=== PATIENT | female | born 1980 | race Caucasian/White ===

== ENCOUNTER 2016-11-05 23:42 | Outpatient (CLI) | payer MEDICAID ==
[~2016-11-05] VITALS: Ht 156.2 cm; Wt 60.4 kg
[~2016-11-05 23:42] MED LIST: FERR27TA PO; PREN1TAB49 PO
[2016-11-06 00:06] VITALS: BP 119/65; PULSE 83; RESP 18
[2016-11-06] MEDS ORDERED: CALC667C PO (00:10)
[2016-11-06] MEDS ORDERED: ONDANSETRON 4 MG INJ IV STA (00:24)
[2016-11-06] MEDS ORDERED: LACTATED RINGER'S 1,000 ML IV ONE (00:30)
[2016-11-06] MEDS ORDERED: CITRIC ACID/SODIUM CITRATE 15 ML CUP PO ONE (00:30)
[2016-11-06 01:17] LABS: ADD SCAN DIFF NO
[2016-11-06 01:19] LABS: BASOPHILS % 0.3 % (0.0-2.0); EOSINOPHILS # 0.1 10^3/ul (0.0-0.5); EOSINOPHILS % 0.8 % (0.0-7.0); HEMATOCRIT 32.7 % (37.0-47.0); HEMOGLOBIN 11.2 g/dl (12.0-16.0); LYMPHOCYTES # 1.4 10^3/ul (0.8-2.9); LYMPHOCYTES % 11.3 % (15.0-51.0); MEAN CORPUSCULAR HEMOGLOBIN 29.5 pg (29.0-33.0); MEAN CORPUSCULAR HGB CONC 34.3 g/dl (32.0-37.0); MEAN CORPUSCULAR VOLUME 86.1 fl (82.0-101.0); MEAN PLATELET VOLUME 9.9 fl (7.4-10.4); MONOCYTE # 0.7 10^3/ul (0.3-0.9); MONOCYTES % 5.5 % (0.0-11.0); NEUTROPHIL # 9.8 10^3/ul (1.6-7.5); NEUTROPHILS % 81.5 % (39.0-77.0); PLATELET COUNT 250 10^3/UL (140-415); RED CELL DISTRIBUTION WIDTH 13.9 % (11.5-14.5)
[2016-11-06 01:19] LABS: ADD UMIC YES; URINE BILIRUBIN (Dip) NEGATIVE (NEGATIVE); URINE BLOOD (Dip) NEGATIVE (NEGATIVE); URINE COLOR LT. YELLOW (YELLOW); URINE GLUCOSE (Dip) NEGATIVE (NEGATIVE); URINE KETONES (Dip) NEGATIVE (NEGATIVE); URINE LEUKOCYTE ESTERASE (Dip) NEGATIVE (NEGATIVE); URINE NITRITE (Dip) NEGATIVE (NEGATIVE); URINE TOTAL PROTEIN (Dip) 2+ (NEGATIVE); URINE UROBILINOGEN (Dip) 0.2 E.U./dL (0.1-1.0)
[2016-11-06 01:29] LABS: SQUAMOUS EPITHELIAL CELL,UR MANY; URINE RBCS 0-2 /HPF (0)
[2016-11-06 01:30] LABS: BACTERIA,URINE OCCASIONAL
[2016-11-06] MEDS ORDERED: LACTATED RINGER'S 1,000 ML IV SCH (01:30)
--- NOTE | 2016-11-06 01:30 | RADRPT ---
PROCEDURE: Right upper quadrant ultrasound. CLINICAL INDICATION: , epigastric pain. TECHNIQUE: Multiple real-time longitudinal and transverse images of the right upper quadrant of th e abdomen were acquired utilizing a curved array transducer. Images were reviewed on a high-resoluti on PACS workstation. COMPARISON: None. FINDINGS: The pancreas head is unremarkable. The pancreas body and tail are obscured. The liver is normal in echogenicity. The liver measures 14.4 cm in length. No hepatic lesion or in trahepatic biliary ductal dilatation is seen. The portal vein is patent with hepatopetal flow. Multiple mobile stones are seen within the gallbladder lumen. The gallbladder wall is not thickened . There is no pericholecystic fluid. The sonographic Santiago's sign is negative. The common bile lupis t measures 3 mm in diameter, not dilated. The right kidney measures 10.8 cm in length. Renal echogenicity is normal. There is no hydronephro sis, urinary calculus, or renal mass. The visualized portions of the aorta and IVC are unremarkable. IMPRESSION: 1. Cholelithiasis without evidence of cholecystitis. 2. No biliary dilatation. RPTAT: HTAR .Rashad Morton MD, Date Time Electronically viewed and signed by .Rashad Morton MD, on 11/06/2016 01:29 .R/
[2016-11-06 01:40] LABS: ALBUMIN 3.6 g/dl (3.3-4.9); ALBUMIN/GLOBULIN RATIO 0.97; BILIRUBIN,INDIRECT 0.1 mg/dl (0-1.1); BILIRUBIN,TOTAL 0.1 mg/dl (0.2-1.3); CALCIUM 9.5 mg/dl (8.4-10.2); CREATININE 0.4 mg/dl (0.44-1.00); POTASSIUM 3.8 mmol/L (3.5-5.1); TOTAL PROTEIN 7.3 g/dl (6.1-8.1)
--- NOTE | 2016-11-06 03:15 | TRIAGE ---
OB Triage Datetime Report Generated by CPN: 11/06/2016 03:15 Datetime: 11/06/2016 03:10 Stage of : OB Triage Datetime: 11/06/2016 02:12 Heart Rate FHR Baseline Rate: 145 Monitor Mode: External US FHR Baseline Changes: No Baseline Change Variability: Moderate 6-25 bpm Pain Assessment Pain Scale: 0 Pain Presence: None/Denies Pain Type: N/A Datetime: 11/06/2016 01:36 Stage of : OB Triage Monitor Mode: External Pattern: Normal: <= 5 Contractions in 10 Minutes Resting Tone [place]: Relaxed Heart Rate FHR Baseline Rate: 135 Monitor Mode: External US FHR Baseline Changes: No Baseline Change Variability: Moderate 6-25 bpm Category: Category I Pain Assessment Pain Scale: 0 Pain Presence: None/Denies Pain Type: N/A Datetime: 11/06/2016 00:25 Stage of : OB Triage Labor Evaluation Frequency: 0 Monitor Mode: External Quality: Mild Pattern: Normal: <= 5 Contractions in 10 Minutes Resting Tone [place]: Relaxed Heart Rate FHR Baseline Rate: 140 Monitor Mode: External US FHR Baseline Changes: No Baseline Change Variability: Moderate 6-25 bpm Accelerations: 15X15 Decelerations: None Category: Category I Datetime: 11/06/2016 00:01 Time of Arrival: 11/05/2016 23:34 EGA: 24.2 Arrived By: Wheelchair Arrived From: Home Chief Complaint: to OB triage w/ c/o epigastric pain and nausea beg 2300 and emesis x1. Denie s medical problems or hx problems this Movement: Present Contractions: Denies/Absent Rupture of Membranes: Denies Vaginal Bleeding: None Vaginal Discharge: Denies Recent Sexual Intercouse: Denies Abdominal Trauma: Not Applicable Patient Complaints: Nausea; Vomiting; Epigastric Pain Time Provider Notified: 10/30/2016 00:25 Provider Notified: Dr Enrique Initial Plan: EFM, IV hydration, RUQ u/s, labs Datetime: 11/05/2016 23:52 Stage of : OB Triage Maternal Assessment Level of Consciousness: Fully Conscious Headache: Denies Blurred Vision: No Respiratory Effort: Unlabored Nausea/Vomiting: Present RUQ Epigastric Pain: Present Facial Edema: None Labor Evaluation Frequency: placed Monitor Mode: External Monitor Mode: External US Comments: FHT 140 Pain Assessment Pain Scale: 8 Pain Presence: Constant Pain Type: Sharp Pain Location: Abdomen
--- NOTE | 2016-11-06 03:33 | QN ---
Documentation Comment Laborist Dr Mckeon's pt 36 y.o. with an IUP at 24w 2d with c/o epigastric pain and vomiting. Denies contractions, bleeding, or leaking. No loose stools. Denies a h/o heartburn or gallstones. PMHx: none. PSHx: none. POBHx: x 1. NKDA. T=98.4 BP 118/65 NST:baseline 130 bpm with accels to 170 bpm. No decels. No UC's. RUQ US: multiple gallstones. CBD not dilated. Right kidney, liver and pancreas are normal. ALT/AST 38/86. WBC 12.0 U/A negative except for 2+ protein. Pt was given IV hydration, Bicitra p.o., Zofran. She felt much better with the pain and nausea completely resolved. A: IUP at 24w 2d. Cholelithiasis. P: D/C IV and D/C home. Reviewed the findings and the need to consume a low-fat diet. REYNALDO CHUNG MD November 06, 2016 03:32
== END 2016-11-06 03:21 | disposition home or self-care (01) ==
LOC: OBT 23:42 → L-D 23:43 → OBT 11-06 03:21
PROVIDERS: ATTEND Obstetrics & Gynecology
DX: O26.892 Other specified pregnancy related conditions, second trimester (principal); O21.8 Other vomiting complicating pregnancy; O09.522 Supervision of elderly multigravida, second trimester; Z3A.24 24 weeks gestation of pregnancy; R10.13 Epigastric pain
CPT/HCPCS: 36415; 76705; 80053; 81001; 82150; 83690; 85025; 96360; 96361; 96374; J2405; J7120; Z7500; G0463

== ENCOUNTER 2017-02-19 08:41 | Inpatient (IN) | payer MEDICAID ==
[~2017-02-19] VITALS: Ht 157.5 cm; Wt 62.8 kg
[~2017-02-19 08:41] MED LIST changes: +CALC667C PO
[2017-02-19 09:00] VITALS: BP 102/78; PULSE 139; RESP 18
[2017-02-19] MEDS ORDERED: morphine 10 MG INJ IM PRN ×2 (13:00→13:30)
[2017-02-19] MEDS: LACTATED RINGER'S 1,000 ML IV SCH ×2 (13:03→19:45)
[2017-02-19] MEDS ORDERED: MISOPROSTOL 200 MCG TAB PR PRN (18:00)
[2017-02-19] MEDS ORDERED: LIDOCAINE 1% (MPF) 30 ML INJ INJ PRN (18:00)
[2017-02-19] MEDS ORDERED: METHYLERGONOVINE 0.2 MG INJ IM PRN (18:00)
[2017-02-19] MEDS ORDERED: IBUPROFEN 600 MG TAB PO PRN ×2 (18:00→19:30)
[2017-02-19] MEDS ORDERED: BUTORPHANOL 2 MG INJ IV PRN (18:00)
[2017-02-19] MEDS ORDERED: OXYTOCIN 30 UNITS/LR 500 ML IV PRN (18:00)
[2017-02-19] MEDS ORDERED: HYDROCODONE/APAP (5/325) TAB PO PRN (18:00)
[2017-02-19] MEDS ORDERED: CARBOPROST 250 MCG INJ IM PRN (18:00)
--- NOTE | 2017-02-19 18:08 | TRIAGE ---
OB Triage Datetime Report Generated by CPN: 02/19/2017 18:08 Datetime: 02/19/2017 17:58 Labor Evaluation Frequency: 3-6 Monitor Mode: External Duration (sec)2399: 50-70 Quality: Mild Pattern: Normal: <= 5 Contractions in 10 Minutes Resting Tone [place]: Relaxed Heart Rate FHR Baseline Rate: 125 Monitor Mode: External US Variability: Moderate 6-25 bpm Accelerations: 15X15 Decelerations: None Category: Category I Pain Assessment Pain Scale: 4 Pain Presence: Intermittent Pain Type: Contraction Pain Location: Abdomen Pain Goal: 3 Datetime: 02/19/2017 17:25 Vaginal Exam Dilatation (cms): 2.0 Effacement (%): 75 Station: -3 Exam By: WLIU Datetime: 02/19/2017 17:00 Labor Evaluation Frequency: 4-6 Monitor Mode: External Duration (sec)2399: 50-80 Quality: Mild Pattern: Normal: <= 5 Contractions in 10 Minutes Resting Tone [place]: Relaxed Heart Rate FHR Baseline Rate: 125 Monitor Mode: External US Variability: Moderate 6-25 bpm Accelerations: 15X15 Decelerations: None Category: Category I Pain Assessment Pain Scale: 3 Pain Presence: Intermittent Pain Type: Contraction Pain Location: Abdomen Pain Goal: 3 Datetime: 02/19/2017 15:57 Labor Evaluation Frequency: 4-7 Monitor Mode: External Duration (sec)2399: 50-70 Quality: Mild Pattern: Normal: <= 5 Contractions in 10 Minutes Resting Tone [place]: Relaxed Heart Rate FHR Baseline Rate: 115 Monitor Mode: External US Variability: Moderate 6-25 bpm Accelerations: 15X15 Decelerations: None Category: Category I Pain Assessment Pain Scale: 1 Pain Presence: Intermittent Pain Type: Contraction Pain Location: Abdomen Pain Goal: 3 Datetime: 02/19/2017 15:00 Labor Evaluation Frequency: 4-7 Monitor Mode: External Duration (sec)2399: 50-80 Quality: Mild Pattern: Normal: <= 5 Contractions in 10 Minutes Resting Tone [place]: Relaxed Heart Rate FHR Baseline Rate: 115 Monitor Mode: External US Variability: Moderate 6-25 bpm Accelerations: 15X15 Decelerations: None Category: Category I Pain Assessment Pain Scale: 1 Pain Presence: Intermittent Pain Type: Contraction Pain Location: Abdomen Pain Goal: 3 Datetime: 02/19/2017 14:40 Vaginal Exam Dilatation (cms): 2.0 Effacement (%): 70 Station: -3 Exam By: WLIU Datetime: 02/19/2017 14:00 Labor Evaluation Frequency: 5-6 Monitor Mode: External Duration (sec)2399: 50-80 Quality: Mild Pattern: Normal: <= 5 Contractions in 10 Minutes Resting Tone [place]: Relaxed Heart Rate FHR Baseline Rate: 125 Monitor Mode: External US Variability: Moderate 6-25 bpm Accelerations: 15X15 Decelerations: None Category: Category I Pain Assessment Pain Scale: 1 Pain Presence: Intermittent Pain Type: Contraction Pain Location: Abdomen Pain Goal: 3 Datetime: 02/19/2017 12:27 Vaginal Exam Dilatation (cms): 2.0 Effacement (%): 70 Station: -3 Exam By: wliu Datetime: 02/19/2017 10:38 Labor Evaluation Frequency: 5 Monitor Mode: External Duration (sec)2399: 60 Quality: Moderate Pattern: Normal: <= 5 Contractions in 10 Minutes Resting Tone [place]: Relaxed Heart Rate FHR Baseline Rate: 135 Monitor Mode: External US Variability: Moderate 6-25 bpm Accelerations: 15X15 Decelerations: None Category: Category I Pain Assessment Pain Scale: 10 Pain Presence: Intermittent Pain Type: Contraction Pain Location: Abdomen Pain Goal: 3 Datetime: 02/19/2017 09:51 Labor Evaluation Frequency: 1-12 Monitor Mode: External Duration (sec)2399: 50-70 Quality: Mild Pattern: Normal: <= 5 Contractions in 10 Minutes Resting Tone [place]: Relaxed Heart Rate FHR Baseline Rate: 135 Monitor Mode: External US FHR Baseline Changes: No Baseline Change Variability: Moderate 6-25 bpm Accelerations: 15X15 Decelerations: None Datetime: 02/19/2017 09:03 Vaginal Exam Dilatation (cms): 1.5 Effacement (%): 70 Station: -2 Exam By: CK Vaginal Bleeding: Normal Show Cervix, Consistency: Soft Cervix, Position: Posterior Presentation 'A': Cephalic Datetime: 02/19/2017 08:56 Time of Arrival: 02/19/2017 08:34 EGA: 39.4 Arrived By: Ambulatory Arrived From: Home Chief Complaint: CONTRACTIONS FROM 0200, BLEEDING Movement: Present Contractions: Regular Time Contractions Began: 02/19/2017 08:00 Contractions: Q5-10MIN Rupture of Membranes: Denies Vaginal Bleeding: Scant Vaginal Discharge: Present Patient Complaints: Contractions; Other Time Provider Notified: 02/19/2017 10:33 Provider Notified: Initial Plan: r/o labor Datetime: 02/19/2017 08:53 Stage of : OB Triage Assessment Type: Triage Maternal Assessment Level of Consciousness: Fully Conscious Headache: Denies Blurred Vision: No Respiratory Effort: Unlabored; Regular Rhythm; Equal Expansion Breath Sounds, Left: Clear and Equal Breath Sounds, Right: Clear and Equal Nausea/Vomiting: Denies RUQ Epigastric Pain: Denies Lower Extremities Edema: None Degree: None Upper Extremities Edema: None Degree: None Facial Edema: None Temperature Route: Oral Fall Risk Assessment History of Falling: (0) No Secondary Diagnosis: (0) No Ambulatory Aid: (0) Bedrest/Nurse Assist IV Therapy: (0) No Gait: (0) Normal/Bedrest/Immobile Mental Status: (0) Oriented to Own Ability Fall Score: 0 Fall Risk Score Definition: No Risk: No action required Datetime: 11/06/2016 02:30 Labor Evaluation Frequency: NONE Duration (sec)2399: NONE Pattern: Normal: <= 5 Contractions in 10 Minutes Heart Rate FHR Baseline Rate: 130 Monitor Mode: External US FHR Baseline Changes: No Baseline Change Variability: Moderate 6-25 bpm Comments: CONTINUOUS MONITORING WITH LOSS OF CONTACT D/T GESTATIONAL AGE Datetime: 11/06/2016 00:01 EGA: 24.3
--- NOTE | 2017-02-19 18:49 | HP ---
Date/Time of Note Date/Time of Note DATE: 02/19/17 TIME: 18:49 OB - History Hx of Present Free Text/Dictation 39+ : 2 Para: 1 Care: Good Care Ultrasounds: Normal mid trimester US Obstetrical Complications: None Medical Complications: None Past Family/Social History * Past Medical, Surgical, Family and Obstetric Histories reviewed from chart. OB Admission Exam Vital Signs Vital Signs Vital Signs Date Time Temp Pulse Resp B/P Pulse Ox O2 Delivery O2 Flow Rate FiO2 02/19/17 09:00 98.2 139 18 102/78 97 Room Air Physical Exam Cervical Dilatation: 2cm Effacement: 75% Station: -1 Membranes: Intact Heart Rate: 140's Accelerations: Accelerations Present Decelerations: No Decelerations Varibility: Moderate Contractions on Admission: < 5 Minutes Apart OB Assessment/Plan Reason for admission: observation Plan: Expectant Management TRUE AGUILAR M.D. Feb 19, 2017 18:49
[2017-02-19] MEDS ORDERED: LACTATED RINGER'S 1,000 ML IV PRN (19:00)
[2017-02-19] MEDS ORDERED: OXYTOCIN 30 UNITS/LR 500 ML IV SCH ×2 (19:30)
[2017-02-19 20:58] LABS: BASOPHILS % 0.4 % (0.0-2.0); EOSINOPHILS # 0.1 10^3/ul (0.0-0.5); EOSINOPHILS % 0.9 % (0.0-7.0); HEMATOCRIT 40.1 % (37.0-47.0); HEMOGLOBIN 13.1 g/dl (12.0-16.0); LYMPHOCYTES # 1.4 10^3/ul (0.8-2.9); LYMPHOCYTES % 17.5 % (15.0-51.0); MEAN CORPUSCULAR HEMOGLOBIN 29.6 pg (29.0-33.0); MEAN CORPUSCULAR HGB CONC 32.7 g/dl (32.0-37.0); MEAN CORPUSCULAR VOLUME 90.7 fl (82.0-101.0); MEAN PLATELET VOLUME 11.1 fl (7.4-10.4); MONOCYTE # 0.5 10^3/ul (0.3-0.9); MONOCYTES % 6.6 % (0.0-11.0); NEUTROPHILS % 74.1 % (39.0-77.0); PLATELET COUNT 232 10^3/UL (140-415); RED BLOOD COUNT 4.42 10^6/ul (4.20-5.40); RED CELL DISTRIBUTION WIDTH 14.2 % (11.5-14.5); WHITE BLOOD COUNT 8.1 10^3/ul (4.8-10.8)
[2017-02-19 21:21] LABS: INR 0.9; PROTIME 12.1 Sec (12.2-14.2); PT RATIO 0.9
[2017-02-19 21:23] LABS: PARTIAL THROMBOPLASTIN TIME 30.6 Sec (25.0-35.0)
[2017-02-19] MEDS ORDERED: MINERAL OIL LIGHT 10 ML VIAL TOP ONE (22:00)
[2017-02-19] MEDS ORDERED: DIPHENHYDRAMINE 50 MG INJ IV ONE (23:30)
[2017-02-20] MEDS: LACTATED RINGER'S 1,000 ML IV SCH ×3 (03:43→14:57)
[2017-02-20] MEDS ORDERED: FENTAnyl 2MCG/ML-ROPIV 0.2% 100 ML ONE (05:41)
[2017-02-20] MEDS ORDERED: NALOXONE (0.4 MG/ML) INJ IV PRN (06:00)
[2017-02-20] MEDS ORDERED: FENTAnyl 2MCG/ML-ROPIV 0.2% 100 ML BAG EPI SCH (06:00)
[2017-02-20] MEDS ORDERED: ONDANSETRON 4 MG INJ IV STA (10:58)
[2017-02-20] MEDS ORDERED: MINERAL OIL LIGHT 10 ML VIAL TOP ONE (14:30)
[2017-02-20] MEDS ORDERED: OXYTOCIN 30 UNITS/LR 500 ML IV SCH (16:30)
--- NOTE | 2017-02-20 19:36 | LDN ---
Date/Time of Note Date/Time of Note DATE: 02/20/17 TIME: 19:34 Delivery Summary Normal spontaneous vaginal delivery of a viable over intact perineum Weeks of Gestation 39+ Placenta Delivered: Spontaneously, Intact & Complete Meconium: none Episiotomy: No Perineal laceration: 1 Laceration repair: First-degree perineal laceration was repaired in layers in normal fashion using 2-0 Vicryl and 2-0 chromic Anesthesia type: Epidural Estimated blood loss: 300 Sponge & Needle done & correct: Yes All needle counts correct: Yes Any foreign bodies felt in the: No Problems: Infant Delivery Information Sex Sex: female Apgars 1 Minute: 8 5 Minute: 9 Suctioning Nose & mouth suctioned at keysha: Yes Delee suction performed: No Umbilical Cord Umbilical cord with: 3 Vessels Cord presentations: nuchal cord Nuchal cord present X: 1 Cord Blood was obtained: Yes Mother & Baby Disposition Disposition Mom & Baby to Maternity; Good: Yes (Mother and baby were recovered in good condition) Mom transferred to: Other (70) Baby to NICU: No LIZABETH REYNOSO MD Feb 20, 2017 19:36
[2017-02-20 21:15] VITALS: BP 143/69; PULSE 87; RESP 18
[2017-02-20] MEDS ORDERED: ZOLPIDEM 5 MG TAB PO PRN (22:00)
[2017-02-20] MEDS ORDERED: METHYLERGONOVINE 0.2 MG INJ IM PRN (22:00)
[2017-02-20] MEDS ORDERED: DIBUCAINE 1% 30 GM OINT PR PRN (22:00)
[2017-02-20] MEDS ORDERED: CARBOPROST 250 MCG INJ IM PRN (22:00)
[2017-02-20] MEDS ORDERED: HYDROCODONE/APAP (5/325) TAB PO PRN ×2 (22:00)
[2017-02-20] MEDS ORDERED: MISOPROSTOL 200 MCG TAB PR PRN (22:00)
[2017-02-20] MEDS ORDERED: OXYTOCIN 30 UNITS/LR 500 ML IV PRN (22:00)
[2017-02-20] MEDS: LANOLIN 7 GM TUBE TOP PRN (22:02)
[2017-02-20] MEDS: BENZOCAINE 20% 56 ML SPRAY TOP PRN (22:02)
[2017-02-20] MEDS: WITCH HAZEL/GLYCERIN PAD PR PRN (22:02)
[2017-02-21] VITALS (17 sets, daily range): BP systolic 90–117; BP diastolic 55–73; PULSE 46–82; RESP 10–24
[2017-02-21] MEDS: IBUPROFEN 600 MG TAB PO SCH ×5 (00:08→17:28)
[2017-02-21] MEDS: CEPHALEXIN 500 MG CAP PO SCH ×4 (00:08→17:28)
[2017-02-21] MEDS: LACTATED RINGER'S 1,000 ML IV* SCH ×3 (04:18→14:28)
[2017-02-21] MEDS ORDERED: CEFAZOLIN 1 GM INJ ONE (07:00)
[2017-02-21] MEDS: SENNA/DOCUSATE NA (8.6MG/50MG) TAB PO SCH ×2 (08:26→20:49)
[2017-02-21] MEDS: MAGNESIUM HYDROXIDE 30ML CUP PO SCH ×2 (08:26→20:49)
[2017-02-21 10:09] LABS: BASOPHIL # 0.1 10^3/ul (0.0-0.1); BASOPHILS % 0.5 % (0.0-2.0); EOSINOPHILS # 0.1 10^3/ul (0.0-0.5); EOSINOPHILS % 1.4 % (0.0-7.0); HEMATOCRIT 34.4 % (37.0-47.0); HEMOGLOBIN 11.7 g/dl (12.0-16.0); LYMPHOCYTES # 1.7 10^3/ul (0.8-2.9); LYMPHOCYTES % 16.8 % (15.0-51.0); MEAN CORPUSCULAR HEMOGLOBIN 30.5 pg (29.0-33.0); MEAN CORPUSCULAR VOLUME 89.8 fl (82.0-101.0); MEAN PLATELET VOLUME 10.8 fl (7.4-10.4); MONOCYTE # 0.9 10^3/ul (0.3-0.9); MONOCYTES % 8.5 % (0.0-11.0); NEUTROPHILS % 72.4 % (39.0-77.0); PLATELET COUNT 193 10^3/UL (140-415); RED BLOOD COUNT 3.83 10^6/ul (4.20-5.40); RED CELL DISTRIBUTION WIDTH 14.1 % (11.5-14.5)
--- NOTE | 2017-02-21 15:57 | DS ---
Date/Time of Note Date/Time of Note Home today or next day DATE: 02/21/17 TIME: 15:55 Obstetrical Discharge Record Final Diagnosis Final Diagnosis: Term delivered Other Final Diagnosis Status post vaginal delivery Vaginal Delivery Obstetrical Delivery: Spontaneous, Laceration, Repaired Condition on Discharge Physical Assessment Last Vitals: See nurse's notes Voiding: Yes Bowel Movement: Yes Breast: Soft, non-tender, Filling Fundus: Firm Abdomen and Incision: Soft bowel sounds present Episiotomy: Not applicable Perineum is healing Calf Tenderness: No Patient Condition: Good LIZABETH REYNOSO MD Feb 21, 2017 15:57
--- NOTE | 2017-02-21 16:24 | PN ---
Date/Time of Note Date/Time of Note DATE: 02/21/17 TIME: 16:21 Assessment/Plan VTE Prophylaxis VTE Prophylaxis Intervention: ambulation Lines/Catheters IV Catheter Type (from Nrs): Peripheral IV Assessment/Plan Assessment/Plan Status post vaginal delivery Desires sterilization Proceed with bilateral tubal ligation Subjective 24 Hr Interval Summary Free Text/Dictation No major complaints Desires sterilization Constitutional: improved, no complaints Eyes: no complaints ENT: no complaints Respiratory: no complaints Cardiovascular: no complaints Gastrointestinal: no complaints Genitourinary: no complaints Musculoskeletal: no complaints Skin: no complaints Neurologic: no complaints Endocrine: no complaints Lymphatic: no complaints Psychological: nl mood/affect, no complaints Immunologic: no complaints Exam/Review of Systems Vital Signs Vitals Vital Signs Date Time Temp Pulse Resp B/P Pulse Ox O2 Delivery O2 Flow Rate FiO2 02/21/17 15:27 98.0 59 16 102/73 Room Air 02/19/17 09:00 97 Intake and Output 02/20/17 02/20/17 02/21/17 15:00 23:00 07:00 Intake Total 1000 ml 1125 ml 250 ml Output Total 900 ml 1500 ml 400 ml Balance 100 ml -375 ml -150 ml Exam Abdomen is soft Lochia is moderate Fundus is firm Constitutional: alert, oriented, well developed Psych: nl mood/affect, no complaints Head: atraumatic, normocephalic Eyes: EOMI, PERRL, nl conjunctiva, nl lids, nl sclera ENMT: nl external ears & nose, nl lips & teeth, nl nasal mucosa & septum Neck: non-tender, supple Respiratory: clear to auscultation, normal air movement Cardiovascular: nl pulses, regular rate and rhythm Gastrointestinal: nl liver, spleen, non-tender, soft Genitourinary - Female: other (Lochia is moderate), uterus (Fundus is firm) Musculoskeletal: nl extremities to inspection, nl gait and stance Extremities: normal pulses Neurological: [employer]TERATION [employer]ILOR APPRENTICE II-XII intact, nl mental status, nl speech, nl strength Skin: nl turgor, No rash or lesions Lymph: nl lymph nodes Results Result Diagram: 02/21/17 0946 Results 24 hrs Laboratory Tests Test 02/21/17 09:25 White Blood Count 10.0 # Red Blood Count 3.83 L Hemoglobin 11.7 L Hematocrit 34.4 L Mean Corpuscular Volume 89.8 Mean Corpuscular Hemoglobin 30.5 Mean Corpuscular Hemoglobin Concent 34.0 Red Cell Distribution Width 14.1 Platelet Count 193 Mean Platelet Volume 10.8 H Neutrophils % 72.4 Lymphocytes % 16.8 Monocytes % 8.5 Eosinophils % 1.4 Basophils % 0.5 Nucleated Red Blood Cells % 0.0 Neutrophils # (Manual) 7.2 Lymphocytes # 1.7 Monocytes # 0.9 Eosinophils # 0.1 Basophils # 0.1 Nucleated Red Blood Cells # 0.0 Medications Medications Current Medications Cephalexin 500 mg 500 mg Q6 PO Last administered on 02/21/17 05:58; Admin Dose 500 MG; Start 02/21/17 at 00:00 Lactated Ringer's (Lr) 1,000 ml @ 125 mls/hr Q8H IV* Last administered on 02/21 14:28; Admin Dose 125 MLS/HR; Start 02/20/17 at 21:32 Ibuprofen (Motrin) 600 mg Q6 PO Last administered on 02/21/17 05:58; Admin Dose 600 MG; Start 02/21/17 at 00:00 Acetaminophen/ Hydrocodone Bitart ([place] (5/325)) 1 tab Q4H PRN PO PAIN LEVEL 1 -5 Last administered on 02/21/17 03:37; Admin Dose 1 TAB; Start 02/20/17 at 22: 00 Acetaminophen/ Hydrocodone Bitart ([place] (5/325)) 2 tab Q4H PRN PO PAIN LEVEL 6 -10; Start 02/20/17 at 22:00 Zolpidem Tartrate (Ambien) 5 mg QHS PRN PO INSOMNIA; Start 02/20/17 at 22:00 Senna/Docusate Sodium (Senokot-S) 1 tab BID PO ; Start 02/21/17 at 09:00 Magnesium Hydroxide (Milk Of Mag) 30 ml Q12 PO ; Start 02/21/17 at 09:00 Measles/Mumps/ Rubella Vaccine Live (Mmr Ii Vaccine) 0.5 ml ONCE ONCE SC* ; Start 02/22/17 at 09:00; Stop 02/22/17 at 09:01 Diphtheria/ Tetanus/Acell Pertussis (Adacel) 0.5 ml ONCE ONCE IM* ; Start at 09:00; Stop 02/22/17 at 09:01 Varicella Virus Vaccine Live 1350 unit 1,350 unit ONCE ONCE SC* ; Start at 09:00; Stop 02/22/17 at 09:01 Oxytocin/Lactated Ringer's 500 ml @ 0 mls/hr ONCE PRN IV For Hemorrhage Management Last administered on 02/21/17t 00:08; Admin Dose 125 MLS/HR; Start at 22:00 Methylergonovine Maleate (Methergine) 0.2 mg ONCE PRN IM VAGINAL BLEEDING; Start 02/20/17 at 22:00 Carboprost Tromethamine (Hemabate) 250 mcg ONCE PRN IM VAGINAL BLEEDING; Start 02/20/17 at 22:00 Misoprostol (Cytotec) 1,000 mcg ONCE PRN AR VAGINAL BLEEDING; Start 02/20/17 at 22:00 LIZABETH REYNOSO MD Feb 21, 2017 16:24
[2017-02-21] MEDS ORDERED: FENTAnyl 50 MCG/ML VIAL IV PRN (16:30)
[2017-02-21] MEDS ORDERED: DIPHENHYDRAMINE 50 MG INJ IV PRN ×2 (16:30→19:00)
[2017-02-21] MEDS ORDERED: HYDROmorphONE (0.2 MG/ML) 10ML SYG IV PRN ×2 (16:30)
[2017-02-21] MEDS ORDERED: PROCHLORPERAZINE 10 MG INJ IV PRN (16:30)
[2017-02-21] MEDS ORDERED: OXYCODONE/ACETAMINOPHEN (5/325) TAB PO PRN ×2 (16:30)
[2017-02-21] MEDS ORDERED: ONDANSETRON 4 MG INJ IV PRN ×2 (16:30→19:00)
[2017-02-21] MEDS ORDERED: MEPERIDINE 25 MG INJ IV PRN (16:30)
[2017-02-21] MEDS ORDERED: BUPIVACAINE 0.25% (MPF) 30 ML INJ ONE (16:44)
[2017-02-21] MEDS ORDERED: BUPIVACAINE 0.5% (SDV) 30 ML INJ ONE (16:45)
[2017-02-21] MEDS ORDERED: morphine SULFATE/PF (10 MG/10 ML) INJ ONE (17:08)
[2017-02-21] MEDS ORDERED: LIDOCAINE 2% (SDV) 5 ML INJ ONE (17:09)
[2017-02-21] MEDS ORDERED: FENTAnyl 50 MCG/ML VIAL ONE (17:09)
[2017-02-21] MEDS ORDERED: MIDAZOLAM 1 MG/ML 2 ML INJ ONE (17:09)
[2017-02-21] MEDS ORDERED: PROPOFOL 20 ML ONE (17:09)
[2017-02-21] MEDS ORDERED: ONDANSETRON 4 MG INJ ONE (17:50)
[2017-02-21] MEDS ORDERED: METOCLOPRAMIDE 10 MG INJ ONE (17:59)
[2017-02-21] MEDS ORDERED: ACETAMINOPHEN 1000MG/100ML IV 100 ML ONE (18:17)
[2017-02-21] MEDS ORDERED: KETOROLAC 60 MG INJ IM STA (18:35)
[2017-02-21] MEDS: LACTATED RINGER'S 1,000 ML IV SCH (18:35)
--- NOTE | 2017-02-21 18:35 | OPR ---
Operative Report Planned Procedure Procedure date Feb 21, 2017 Procedure(s) Bilateral tubal ligation Performed by see signature line Anesthesiologist: FLAKITO GUADARRAMA MD Pre-procedure diagnosis Multiparity with desire for sterilization That is post vaginal delivery Anesthesia Type: spinal Procedure Description .The patient was placed on the OR table in supine position. Spinal anesthesia was placed. A Pereira catheter was then inserted into urinary bladder under aseptic condition. After induction of spinal anesthesia, with the patient in supine position, abdominal area was prepped and draped for usual tubal ligation procedure. Under satisfactory anesthesia, a small incision 2 to 3 cm in length was placed just below belly button, incision extended laterally to 1.5 cm lateral to the linea nigra on either side. Incision was carried down with sharp and blunt dissection until fascia was reached. Anterior recti muscle fascia was incised in the midportion. Incision extended laterally to the border of the skin incision. Peritoneum was visualized. Avoiding bowel or bladder, incision was made in peritoneum, which was extended laterally to the border of the skin incision. Two [place] retractors were placed inside the incision. Incision was brought up to the level of the left fallopian tube. Fallopian tube was raised in the mid portion. A clamp was placed below the fimbriated end, most of the fallopian tube from the mesosalpinx traversing the isthmus portion of the tube. Another clamp was placed just below the first and 0 Vicryl tie was used to tie the mesosalpinx and the stump of the fallopian tube on the proximal side. Another stitch of the same kind was used for adequate hemostasis. Hemostasis appeared to be secure on ligated sites of the fallopian tube. Tube was incised above the stitched area. Same procedure was done on the fallopian tube on opposite side. Hemostasis appeared to be secure on ligated sites of either fallopian tubes. Ovaries were within normal limits. Uterus appears to be size. Announcing needle, lap, sponge and instrument count to be correct, abdomen was closed in layers as follows: Peritoneum with running stitches of #1 Vicryl, fascia edges of #1 Vicryl, subcutaneous tissue with running stitches of #1 Vicryl, and skin was reapproximated using subcuticular stitches of 4-0 Monocryl on a PS2 needle and also Dermabond was placed on the incision. The patient tolerated the procedure very well and was transferred to postanesthesia recovery room in stable and good condition. ESTIMATED BLOOD LOSS: Less than 5 mL. Post-Procedure Post-procedure diagnosis Status post bilateral tubal ligation Findings: Normal right and left fallopian tubes and ovaries Estimated blood loss: minimal Specimen(s): yes (see below) Specimen(s) description Segments of right and left fallopian tubes Grafts/Implants: no Complication(s): no Pt Condition post procedure: stable Disposition: PACU Physician Certification I, the undersigned physician, hereby certify that I have discussed the procedure described in this consent form with this patient (or the patient's legal scheduling representative), including: * The risk and benefits of the procedure; * Any adverse reactions that may reasonably be expected to occur; * Any alternative efficacious methods of treatment which may be medically viable ; * The potential problems that may occur during recuperation; * Potential for blood transfusion and associated risks/benefits; and * Any research or economic interest I may have regarding this treatment. I further certify that the patient/legally responsible person was encouraged to ask question and that all questions were answered. LIZABETH REYNOSO MD Feb 21, 2017 18:34
[2017-02-21] MEDS ORDERED: NALBUPHINE HCL (10 MG/1 ML) INJ IV PRN (19:00)
[2017-02-21] MEDS ORDERED: NALOXONE (0.4 MG/ML) INJ IV PRN (19:00)
[2017-02-21] MEDS ORDERED: KETOROLAC 30 MG INJ IV SCH (19:00)
[2017-02-21] MEDS ORDERED: morphine 4 MG/ML VIAL IV PRN (19:00)
[2017-02-21] MEDS ORDERED: CEFAZOLIN 2 GM/50 ML (PMX) 50 ML IVPB ONE (19:00)
[2017-02-21] MEDS ORDERED: KETOROLAC 30 MG INJ IV PRN (19:00)
[2017-02-21] MEDS ORDERED: BUTORPHANOL 2 MG INJ IM ONE (19:00)
[2017-02-21] MEDS ORDERED: morphine 2 MG INJ IV PRN (19:00)
[2017-02-21] MEDS ORDERED: TRIMETHOBENZAMIDE 100 MG/ML VIAL IM PRN (19:00)
--- NOTE | 2017-02-21 20:39 | PD.PPDC ---
WINTER INTERN Discharge Instruction Provider Information Physician Information 36-year-old female had vaginal delivery and tubal ligation in hospital Diagnosis Final Diagnosis: Status post vaginal delivery and tubal ligation Condition Patient Condition: Good Diet Diet: Resume Regular Diet Activity/Restrictions Activity: May Shower Restrictions: No Exercising No Lifting Nothing in the Vagina Return to Work or School: Apr 10, 2017 Follow-up Follow-up with Physician: 4, Week/Weeks (In clinic for follow-up) Return to clinic for [employer]OM[employer]ACHINE [employer]CH[employer]IC Instructions: Fever greater than 101 Chills OB Instructions: Breast Tenderness Depression Comment: Pelvic rest and no heart activity for 6 weeks Surgical Instructions: Incisional Drainage Incisional Redness LIZABETH REYNOSO MD Feb 21, 2017 20:39
[2017-02-21] MEDS ORDERED: IBUP-1542 PO (20:40)
[2017-02-22] MEDS: CEPHALEXIN 500 MG CAP PO SCH ×3 (00:24→12:24)
[2017-02-22] MEDS: IBUPROFEN 600 MG TAB PO SCH ×3 (00:24→12:24)
[2017-02-22 04:00] VITALS: BP 100/61; PULSE 54; RESP 18
[2017-02-22] MEDS: LACTATED RINGER'S 1,000 ML IV SCH (04:35)
[2017-02-22 07:30] VITALS: BP 96/64; PULSE 55; RESP 16
[2017-02-22] MEDS: SENNA/DOCUSATE NA (8.6MG/50MG) TAB PO SCH (08:28)
[2017-02-22] MEDS: MAGNESIUM HYDROXIDE 30ML CUP PO SCH (08:28)
[2017-02-22] MEDS ORDERED: MEASLES,MUMPS,RUBELLA VACCINE INJ SC* ONE (09:00)
[2017-02-22] MEDS ORDERED: DIPHTH/TET/ACEL PERTUSS (ADULT) 0.5 ML VIAL IM* ONE (09:00)
[2017-02-22] MEDS ORDERED: VARICELLA VACCINE LIVE/PF 1,350 UNIT/0.5 ML ML SC* ONE (09:00)
[2017-02-22] MEDS: BENZOCAINE 20% 56 ML SPRAY TOP PRN (10:14)
[2017-02-22] MEDS: WITCH HAZEL/GLYCERIN PAD PR PRN (10:14)
[2017-02-22] MEDS: LANOLIN 7 GM TUBE TOP PRN (10:14)
[2017-02-22] MEDS ORDERED: KETOROLAC 30 MG INJ IV SCH (19:00)
== END 2017-02-22 14:30 | disposition home or self-care (01) | DRG 767 ==
LOC: OBT 08:41 → L-D 08:45 → OBT 17:40 → PP1 02-20 21:06
PROVIDERS: ADMIT Obstetrics & Gynecology; ATTEND Obstetrics & Gynecology
PROC: 10E0XZZ Delivery of Products of Conception, External Approach (ICD-10-PCS; principal; 2017-02-20)
PROC: 3E033VJ Introduction of Other Hormone into Peripheral Vein, Percutaneous Approach (ICD-10-PCS; 2017-02-20)
PROC: 0UL70ZZ Occlusion of Bilateral Fallopian Tubes, Open Approach (ICD-10-PCS; 2017-02-21)
PROC: 0HQ9XZZ Repair Perineum Skin, External Approach (ICD-10-PCS; 2017-02-21)
DX: O70.0 First degree perineal laceration during delivery (principal); Z37.0 Single live birth; O69.81X0 Labor and delivery complicated by cord around neck, without compression, not applicable or unspecified; Z30.2 Encounter for sterilization; Z3A.39 39 weeks gestation of pregnancy
CPT/HCPCS: 36415; 62319; 85025; 85610; 85730; 86592; 86900; 86901; 87340; 88302; 90715; 90716; 96360; 96361; 96372; G0463; J0131; J0595; J0690; J1200; J1885; J2250; J2270; J2274; J2405; J2590; J2765; J3010; J7120